=== PATIENT | female | born 1995 ===

== ENCOUNTER 2016-11-11 12:38 | Emergency (ER) | payer OTHER ==
[2016-11-11 13:03] VITALS: BP 118/72; PULSE 78; RESP 18; TEMP 98.1; O2SAT 100
--- NOTE | 2016-11-11 14:08 | ED PDOC ---
HPI: Female Pain Time Seen by Provider: 11/11/16 13:24 Chief Complaint (Nursing): Female Genitourinary Chief Complaint (Provider): Female Genitourinary History Per: Patient History/Exam Limitations: no limitations Onset/Duration Of Symptoms: Days Current Symptoms Are (Timing): Still Present Severity: Mild Quality Of Discomfort: Cramping Associated Symptoms: denies: Fever, Nausea, Vomiting Alleviating Factors: None Additional Complaint(s): Patient is a 21 year old female with a history of anemia secondary to vaginal bleeding resulting in transfusion, presents to ED for 1 month of vaginal bleeding with suprapubic cramping. Patient recently had her control changed 1-2 months ago with no relief, taking Norethradone. Patient notes several pads daily. Past Medical History Reviewed: Historical Data, Nursing Documentation, Vital Signs Vital Signs: Last Vital Signs Temp 98.1 F 11/11/16 13:03 Pulse 78 11/11/16 13:03 Resp 18 11/11/16 13:03 BP 118/72 11/11/16 13:03 Pulse Ox 100 11/11/16 13:03 - Medical History PMH: Kidney Stones Denies: HIV - Surgical History Surgical History: No Surg Hx - Family History Family History: States: Unknown Family Hx - Living Arrangements Living Arrangements: With Family - Immunization History Hx Tetanus Toxoid Vaccination: No Hx Influenza Vaccination: Yes Hx Pneumococcal Vaccination: No - Home Medications Home Medications: Ambulatory Orders Medication Instructions Recorded Ascorbic Acid [Vitamin C] 500 mg PO DAILY #30 tab 05/15/15 Ferrous Sulfate 325 mg PO DAILY #30 tab 05/15/15 Norgestimate-Ethinyl Estradiol 1 each PO DAILY #28 tablet 05/09/16 [Sprintec 28 Day Tablet] Ibuprofen [Motrin Tab] 800 mg PO Q6H PRN #20 tab 09/19/16 Ferrous Sulfate 325 mg PO DAILY #30 tablet 11/11/16 Ibuprofen [Motrin] 600 mg PO TID PRN #30 tab 11/11/16 - Allergies Allergies/Adverse Reactions: Allergies Allergy/AdvReac Type Severity Reaction Status Date / Time No Known Allergies Allergy Verified 11/11/16 13:01 Review of Systems ROS Statement: Except As Marked, All Systems Reviewed And Found Negative Constitutional: Negative for: Fever, Weakness Eyes: Negative for: Vision Change Cardiovascular: Negative for: Chest Pain, Palpitations Respiratory: Negative for: Shortness of Breath Gastrointestinal: Positive for: Abdominal Pain. Negative for: Nausea, Vomiting Genitourinary Female: Positive for: Vaginal Bleeding. Negative for: Dysuria Physical Exam - Reviewed Nursing Documentation Reviewed: Yes Vital Signs Reviewed: Yes - Physical Exam Appears: Positive for: Non-toxic, No Acute Distress Skin: Positive for: Normal Color, Warm. Negative for: Pallor Eye Exam: Positive for: Normal appearance Neck: Positive for: Normal, Painless ROM Cardiovascular/Chest: Positive for: Regular Rate, Rhythm. Negative for: Murmur , Tachycardia Respiratory: Positive for: Normal Breath Sounds. Negative for: Respiratory Distress Gastrointestinal/Abdominal: Positive for: Tenderness (mild suprapubic ). Negative for: Distended, Guarding, Rebound Pelvic Exam: Positive for: External Exam Normal, Bimanual Exam Normal, No Cerv. Motion Tender, Active Bleeding (scant, closed os) Back: Positive for: Normal Inspection Extremity: Positive for: Normal ROM, Capillary Refill (normal ) Neurologic/Psych: Positive for: Alert, Oriented, Gait (normal ). Negative for: Motor/Sensory Deficits - Laboratory Results Result Diagrams: 11/11/16 14:45 11/11/16 14:45 Urine POC: Negative Urine dip results: Positive for: Blood. Negative for: Leukocyte Esterase, Nitrate, Ketones, Glucose, Bilirubin, Protein - ECG O2 Sat by Pulse Oximetry: 100 (RA) Pulse Ox Interpretation: Normal Medical Decision Making Medical Decision Making: Time: 1345 Initial impression: Vaginal bleeding: dysmenorrhea vs DUB r/o Anemia and endometrial thickening Initial plan: -- Type and screen -- CMP -- Lipase -- Urine preg -- Urine dip -- CBC -- Toradol -- U/S Scribe Attestation: Documented by Ruth Wilkinson acting as a scribe for Mike Blackburn PA-C. MD Scribe Attestation: All medical record entries made by the Scribe were at my direction and personally dictated by me. I have reviewed the chart and agree that the record accurately reflects my personal performance of the history, physical exam, medical decision making, and the department course for this patient. I have also personally directed, reviewed, and agree with the discharge instructions and disposition. Labs with no acute finding. 9.8 Hgb US pending US-FINDINGS: UTERUS:Measures 10.8 x 3.1 x 5.3 cm. Anteverted. ENDOMETRIUM:Measures 4 mm in diameter. CERVIX:No cervical abnormality identified. RIGHT OVARY:Measures 3.4 x 1.7 x 2.5 cm. Blood flow is demonstrated. LEFT OVARY:Measures 2.5 x 1.7 x 3.5 cm. Blood flow is demonstrated. FREE FLUID:No significant free fluid noted. OTHER FINDINGS:None. IMPRESSION: Unremarkable pelvic ultrasound. discussed with patient results, follow up discharge information with video court interpreter deidra ChangBhargavi included labs 9.8 hgb, us and urine test. it included follow up and may need for change in hormone therapy all questions answered, stable for Disposition - Clinical Impression Clinical Impression: DUB (dysfunctional uterine bleeding), Anemia - Patient ED Disposition Is Patient to be Admitted: No Counseled Patient/Family Regarding: Studies Performed, Diagnosis, Need For Followup - Disposition Disposition: Routine/Home Disposition Time: 17:16 Condition: IMPROVED Additional Instructions: follow up with [facility] without fail for further evaluation and treatment your blood level is 9.8 take iron pills return for severe bleeding greater then 1 pad per hour, severe abdominal pain, dizziness, headaches, chest pain, trouble breathing, palpitations or any new concerns Prescriptions: Ferrous Sulfate 325 mg PO DAILY #30 tablet Ibuprofen [Motrin] 600 mg PO TID PRN #30 tab PRN Reason: Other Instructions: Dysfunctional Uterine Bleeding (ED), Anemia (ED) Print Language: FRENCH
[2016-11-11 14:59] LABS: BASO % 0.9 % (0.0-2.0); EOS # 0.1 K/uL (0.0-0.7); EOS % 1.3 % (0.0-4.0); HEMATOCRIT 32.8 % (34.0-47.0); LYMPH % 36.9 % (20.0-40.0); MEAN CELL VOLUME 66.3 fl (81.0-99.0); MEAN CORPUSCULAR HEMOGLOBIN 19.8 pg (27.0-31.0); MEAN CORPUSCULAR HGB CONC 29.9 g/dL (33.0-37.0); MEAN PLATELET VOLUME 9.7 fl (7.2-11.7); MONO # 0.6 K/uL (0.0-0.8); NEUT # 2.7 K/uL (1.8-7.0); NEUT % 49.9 % (50.0-75.0); NRBC % 0.1 % (0.0-0.0); RED CELL DISTRIBUTION WIDTH 18.9 % (11.5-14.5); WHITE BLOOD COUNT 5.4 K/uL (4.8-10.8)
[2016-11-11 15:18] LABS: ALB/GLOB RATIO 1.2 (1.0-2.1); ALKALINE PHOSPHATASE 76 U/L (38-126); ALT/SGPT 25 U/L (9-52); AST/SGOT 20 U/L (14-36); BILIRUBIN,TOTAL 0.1 mg/dl (0.2-1.3); BLOOD UREA NITROGEN 9 mg/dl (7-17); CALCIUM 9.2 mg/dL (8.4-10.2); CARBON DIOXIDE 23 mmol/L (22-30); CHLORIDE 107 mmol/L (98-107); GFR AFRICAN-AMERICAN > 60; GLUCOSE,RANDOM 81 mg/dL (65-105); LIPASE 92 U/L (23-300); POTASSIUM 4.2 MMOL/L (3.6-5.0); SODIUM 142 mmol/l (132-148); TOTAL PROTEIN 7.6 G/DL (6.3-8.2)
--- NOTE | 2016-11-11 16:57 | US ---
HISTORY: pain, DUB COMPARISON: Transvaginal pelvic ultrasound performed 05/14/15 TECHNIQUE: Transabdominal pelvic ultrasound FINDINGS: UTERUS: Measures 10.8 x 3.1 x 5.3 cm. Anteverted. ENDOMETRIUM: Measures 4 mm in diameter. CERVIX: No cervical abnormality identified. RIGHT OVARY: Measures 3.4 x 1.7 x 2.5 cm. Blood flow is demonstrated. LEFT OVARY: Measures 2.5 x 1.7 x 3.5 cm. Blood flow is demonstrated. FREE FLUID: No significant free fluid noted. OTHER FINDINGS: None. IMPRESSION: Unremarkable pelvic ultrasound.
== END 2016-11-11 18:31 | disposition home or self-care (01) ==
LOC: H.ER 12:38
DX: N93.8 Other specified abnormal uterine and vaginal bleeding (principal)

== ENCOUNTER 2017-10-22 12:40 | Emergency (ER) | payer SELFPAY ==
[2017-10-22 12:52] VITALS: BP 125/74; PULSE 78; RESP 19; TEMP 98.4; O2SAT 100
--- NOTE | 2017-10-22 13:59 | ED PDOC ---
HPI: Female Pain Time Seen by Provider: 10/22/17 13:18 Chief Complaint (Nursing): Female Genitourinary Chief Complaint (Provider): VAGINAL DC History Per: Patient History/Exam Limitations: no limitations Onset/Duration Of Symptoms: Days Additional Complaint(s): Pt. with vaginal dc, white color for 3 days. Pt. with no pelvic, pain, dyspnea , chest pain, weakness, headaches. No dysuria. Has had similar dc momths ago and given some meds that helped it. No fever. Past Medical History Reviewed: Nursing Documentation, Vital Signs Vital Signs: Last Vital Signs Temp 98.4 F 10/22/17 12:49 Pulse 78 10/22/17 12:49 Resp 19 10/22/17 12:49 BP 125/74 10/22/17 12:49 Pulse Ox 100 10/22/17 12:49 - Medical History PMH: Kidney Stones Denies: HIV Other PMH: vaginal dc infection - Surgical History Surgical History: No Surg Hx - Family History Family History: States: Unknown Family Hx - Living Arrangements Living Arrangements: With Family - Social History Current smoker - smoking cessation education provided: No Alcohol: None Drugs: Denies - Immunization History Hx Tetanus Toxoid Vaccination: No Hx Influenza Vaccination: Yes Hx Pneumococcal Vaccination: No - Home Medications Home Medications: Ambulatory Orders Medication Instructions Recorded Ascorbic Acid [Vitamin C] 500 mg PO DAILY #30 tab 05/15/15 Ferrous Sulfate 325 mg PO DAILY #30 tab 05/15/15 Norgestimate-Ethinyl Estradiol 1 each PO DAILY #28 tablet 05/09/16 [Sprintec 28 Day Tablet] Ibuprofen [Motrin Tab] 800 mg PO Q6H PRN #20 tab 09/19/16 Ferrous Sulfate 325 mg PO DAILY #30 tablet 11/11/16 Ibuprofen [Motrin] 600 mg PO TID PRN #30 tab 11/11/16 Ciprofloxacin HCl [Cipro] 250 mg PO BID #6 tab 10/22/17 Doxycycline Hyclate [Doryx] 100 mg PO BID 14 Days cap 10/22/17 Ibuprofen [Motrin] 600 mg PO TID 7 Days tab 10/22/17 Nystatin [Mycostatin Cream] 1 appl TP BID 5 Days tube 10/22/17 - Allergies Allergies/Adverse Reactions: Allergies Allergy/AdvReac Type Severity Reaction Status Date / Time No Known Allergies Allergy Verified 11/11/16 13:01 Review of Systems Constitutional: Negative for: Chills, Weakness Cardiovascular: Negative for: Chest Pain, Edema Respiratory: Negative for: Shortness of Breath Gastrointestinal: Negative for: Nausea, Vomiting, Abdominal Pain, Diarrhea Genitourinary Female: Positive for: Vaginal Discharge Musculoskeletal: Negative for: Neck Pain, Shoulder Pain, Arm Pain Skin: Negative for: Rash Neurological: Negative for: Weakness Physical Exam - Reviewed Nursing Documentation Reviewed: Yes Vital Signs Reviewed: Yes - Physical Exam Appears: Positive for: Non-toxic, No Acute Distress Cardiovascular/Chest: Positive for: Regular Rate, Rhythm Respiratory: Positive for: Normal Breath Sounds Gastrointestinal/Abdominal: Positive for: Normal Exam, Bowel Sounds, Soft. Negative for: Tenderness Pelvic Exam: Positive for: External Exam Normal, No Cerv. Motion Tender, Other ( cervix with white-yellow dc; no odor; no erythema of cervix). Negative for: Speculum Exam Normal, Active Bleeding Back: Positive for: Normal Inspection. Negative for: L CVA Tenderness, R CVA Tenderness Extremity: Positive for: Normal ROM. Negative for: Tenderness, Pedal Edema Neurologic/Psych: Positive for: Alert - Laboratory Results Urine dip results: Positive for: Leukocyte Esterase - ECG O2 Sat by Pulse Oximetry: 100 Pulse Ox Interpretation: Normal - Progress ED Course And Treament: 1413: Stable. AAOx3. Pt. with vaginal dc. Will tx for uti, std possible and fungal. Pt. states vaginal area itching. Disposition - Clinical Impression Clinical Impression: Urinary tract infection, Vaginal discharge - Patient ED Disposition Is Patient to be Admitted: No Counseled Patient/Family Regarding: Diagnosis, Need For Followup, Rx Given - Disposition [facility] - [facility]17 Disposition: Routine/Home Disposition Time: 14:14 Condition: STABLE Additional Instructions: Return if not better in 3 days. Prescriptions: Ciprofloxacin HCl [Cipro] 250 mg PO BID #6 tab Doxycycline Hyclate [Doryx] 100 mg PO BID 14 Days cap Ibuprofen [Motrin] 600 mg PO TID 7 Days tab Nystatin [Mycostatin Cream] 1 appl TP BID 5 Days tube Instructions: Urinary Tract Infection, Adult (DC), Vaginal Discharge in Adults Print Language: KOSOVAN
[2017-10-22] MEDS ORDERED: cefTRIAXone (Rocephin) 250 mg Inj IM ONE (14:06)
[2017-10-22] MEDS ORDERED: cefTRIAXone (Rocephin) 250 mg Inj ONE (14:46)
== END 2017-10-22 14:56 | disposition home or self-care (01) ==
LOC: SUPCPDRO 12:40 → H.ER 12:40
DX: N39.0 Urinary tract infection, site not specified (principal); Z87.442 Personal history of urinary calculi
CPT/HCPCS: 81025; 87491; 87591; 96372; 99283; J0696

== ENCOUNTER 2017-11-15 05:03 | Emergency (ER) | payer SELFPAY ==
[2017-11-15 05:21] VITALS: BP 124/76; PULSE 84; RESP 16; TEMP 98; O2SAT 100
--- NOTE | 2017-11-15 05:33 | ED PDOC ---
HPI: General Adult Time Seen by Provider: 11/15/17 05:10 Chief Complaint (Nursing): ENT Problem Chief Complaint (Provider): right ear pain History Per: Patient History/Exam Limitations: no limitations Onset/Duration Of Symptoms: Mins Current Symptoms Are (Timing): Still Present Additional Complaint(s): 22 y/o female presents for evaluation of right ear pain, onset prior to arrival. Patient states she was sleeping and felt something go in to her ear and now feels it moving around. Denies hearing changes, drainage from ear. Past Medical History Reviewed: Historical Data, Nursing Documentation, Vital Signs Vital Signs: Last Vital Signs Temp 98.0 F 11/15/17 05:08 Pulse 84 11/15/17 05:08 Resp 16 11/15/17 05:08 BP 124/76 11/15/17 05:08 Pulse Ox 100 11/15/17 05:08 - Medical History PMH: Kidney Stones Denies: HIV - Surgical History Surgical History: No Surg Hx - Family History Family History: States: Unknown Family Hx - Living Arrangements Living Arrangements: With Family - Immunization History Hx Tetanus Toxoid Vaccination: No Hx Influenza Vaccination: Yes Hx Pneumococcal Vaccination: No - Home Medications Home Medications: Ambulatory Orders Medication Instructions Recorded Ascorbic Acid [Vitamin C] 500 mg PO DAILY #30 tab 05/15/15 Ferrous Sulfate 325 mg PO DAILY #30 tab 05/15/15 Norgestimate-Ethinyl Estradiol 1 each PO DAILY #28 tablet 05/09/16 [Sprintec 28 Day Tablet] Ibuprofen [Motrin Tab] 800 mg PO Q6H PRN #20 tab 09/19/16 Ferrous Sulfate 325 mg PO DAILY #30 tablet 11/11/16 Ibuprofen [Motrin] 600 mg PO TID PRN #30 tab 11/11/16 Ciprofloxacin HCl [Cipro] 250 mg PO BID #6 tab 10/22/17 Doxycycline Hyclate [Doryx] 100 mg PO BID 14 Days cap 10/22/17 Ibuprofen [Motrin] 600 mg PO TID 7 Days tab 10/22/17 Nystatin [Mycostatin Cream] 1 appl TP BID 5 Days tube 10/22/17 - Allergies Allergies/Adverse Reactions: Allergies Allergy/AdvReac Type Severity Reaction Status Date / Time No Known Allergies Allergy Verified 11/11/16 13:01 Review of Systems ROS Statement: Except As Marked, All Systems Reviewed And Found Negative ENT: Positive for: Ear Pain (right) Physical Exam - Reviewed Nursing Documentation Reviewed: Yes Vital Signs Reviewed: Yes - Physical Exam Appears: Positive for: Well, Non-toxic, No Acute Distress ENT: Positive for: TM Is/Are (black insect moving around in right EAC. TM not visualized. Left TM, EAC clear). Negative for: Pharyngeal Erythema, Tonsillar Exudate, Tonsillar Swelling - ECG O2 Sat by Pulse Oximetry: 100 - Progress ED Course And Treament: Viscous lidocaine placed in to right ear. Right ear irrigated with normal saline with + removal of insect. RIght TM clear. Right EAC clear. Patient educated on findings, discharged with instructions to follow up PMD 2-3 days. Return precautions given Disposition - Clinical Impression Clinical Impression: Ear foreign body - Patient ED Disposition Is Patient to be Admitted: No Counseled Patient/Family Regarding: Diagnosis, Need For Followup - Disposition Referrals: [facility] [Outside] Disposition: Routine/Home Disposition Time: 05:34 Condition: IMPROVED Instructions: Removing Objects Stuck in the Ear Print Language: ROMANIAN
== END 2017-11-15 05:46 | disposition home or self-care (01) ==
LOC: H.ER 05:03
DX: T16.1XXA Foreign body in right ear, initial encounter (principal)

== ENCOUNTER 2018-01-18 18:21 | Emergency (ER) | payer SELFPAY ==
[2018-01-18 19:17] VITALS: BP 128/74; PULSE 88; RESP 18; TEMP 99; O2SAT 98
--- NOTE | 2018-01-18 19:53 | ED PDOC ---
HPI: Female Pain Time Seen by Provider: 01/18/18 19:23 Chief Complaint (Nursing): Female Genitourinary Chief Complaint (Provider): Suprapubic pain, dysuria x 3 days History Per: Patient History/Exam Limitations: no limitations Onset/Duration Of Symptoms: Days Current Symptoms Are (Timing): Still Present Associated Symptoms: Urinary Symptoms. denies: Fever, Chills, Nausea, Vomiting , Loss Of Appetite, Back Pain, Constipation Alleviating Factors: None Additional Complaint(s): 3 days of burning on urination and suprapubic pain. No fever/chills. No back pain. No N/V/D. Past Medical History Vital Signs: Last Vital Signs Temp 99 F 01/18/18 19:15 Pulse 88 01/18/18 19:15 Resp 18 01/18/18 19:15 BP 128/74 01/18/18 19:15 Pulse Ox 98 01/18/18 19:15 - Medical History PMH: Kidney Stones Denies: HIV - Family History Family History: States: Unknown Family Hx - Immunization History Hx Tetanus Toxoid Vaccination: No Hx Influenza Vaccination: Yes Hx Pneumococcal Vaccination: No - Home Medications Home Medications: Ambulatory Orders Medication Instructions Recorded Ascorbic Acid [Vitamin C] 500 mg PO DAILY #30 tab 05/15/15 Ferrous Sulfate 325 mg PO DAILY #30 tab 05/15/15 Norgestimate-Ethinyl Estradiol 1 each PO DAILY #28 tablet 05/09/16 [Sprintec 28 Day Tablet] Ibuprofen [Motrin Tab] 800 mg PO Q6H PRN #20 tab 09/19/16 Ferrous Sulfate 325 mg PO DAILY #30 tablet 11/11/16 Ibuprofen [Motrin] 600 mg PO TID PRN #30 tab 11/11/16 Ciprofloxacin HCl [Cipro] 250 mg PO BID #6 tab 10/22/17 Doxycycline Hyclate [Doryx] 100 mg PO BID 14 Days cap 10/22/17 Ibuprofen [Motrin] 600 mg PO TID 7 Days tab 10/22/17 Nystatin [Mycostatin Cream] 1 appl TP BID 5 Days tube 10/22/17 - Allergies Allergies/Adverse Reactions: Allergies Allergy/AdvReac Type Severity Reaction Status Date / Time No Known Allergies Allergy Verified 01/18/18 19:15 Physical Exam - Reviewed Nursing Documentation Reviewed: Yes Vital Signs Reviewed: Yes - Physical Exam Appears: Positive for: Well, Non-toxic, No Acute Distress Head Exam: Positive for: ATRAUMATIC, NORMAL INSPECTION, NORMOCEPHALIC Skin: Positive for: Normal Color, Warm, DRY Eye Exam: Positive for: Normal appearance ENT: Positive for: Normal ENT Inspection Neck: Positive for: Normal, Painless ROM Cardiovascular/Chest: Positive for: Regular Rate, Rhythm Respiratory: Positive for: Normal Breath Sounds. Negative for: Accessory Muscle Use, Respiratory Distress Gastrointestinal/Abdominal: Positive for: Normal Exam Back: Positive for: Normal Inspection Extremity: Positive for: Normal ROM Neurologic/Psych: Positive for: Alert, Oriented - ECG O2 Sat by Pulse Oximetry: 98 Pulse Ox Interpretation: Normal Medical Decision Making Medical Decision Making: Leuks and blood on US. Disposition - Clinical Impression Clinical Impression: Urinary tract infection - Patient ED Disposition Is Patient to be Admitted: No Counseled Patient/Family Regarding: Diagnosis, Need For Followup, Rx Given - Disposition Disposition: Routine/Home Disposition Time: 19:55 Condition: STABLE Instructions: Urinary Tract Infections in Adults Print Language: TRINIDADIAN
== END 2018-01-18 20:27 | disposition home or self-care (01) ==
LOC: H.ER 18:21
DX: N39.0 Urinary tract infection, site not specified (principal)

== ENCOUNTER 2018-10-20 14:18 | Emergency (ER) | payer OTHER ==
[2018-10-20 14:19] VITALS: BMI 32.4
[2018-10-20 14:22] VITALS: BP 134/82; PULSE 99; RESP 18; TEMP 98.9; O2SAT 100
--- NOTE | 2018-10-20 15:05 | ED PDOC ---
HPI: Female Pain Time Seen by Provider: 10/20/18 14:37 Chief Complaint (Nursing): Female Genitourinary Chief Complaint (Provider): Female Genitourinary History Per: Patient History/Exam Limitations: no limitations Onset/Duration Of Symptoms: Days Current Symptoms Are (Timing): Still Present Additional Complaint(s): 23 y/o female with a PMHx of irregular menstruation, PCOS, migraines and chronic lower abdominal pain presents to the ED for evaluation of vaginal bleeding for the past three days associated with a headache for the past couple of weeks. Patient reports of having painful and heavy menstrual periods for which she is being evaluated and treated by her Social Service Assistant at [facility], Dr. Moses. Patient notes she was given control medications for treatment and had a D&C last Monday. Patient states bleeding is no longer heavy. Patient notes bleeding is mild and persistent. Patient is now concerned if she is anemic. Patient reports current headache is similar to those of her migraines. Patient notes of taking Tylenol and Ibuprofen with no relief of symptoms. Of note, patient reports of have an US recently that confirmed Ovarian Cysts. Patient states she has a follow up appointment with her [facility] next Monday. Patient notes she is currently not taking control now or bleeding at this time. Denies fever, nausea, vomiting, diarrhea and urinary symptoms. PMD: Anisa Brewer Abnormal Vaginal Bleeding: Yes Past Medical History Reviewed: Historical Data, Nursing Documentation, Vital Signs Vital Signs: Last Vital Signs Temp 98.9 F 10/20/18 14:22 Pulse 99 H 10/20/18 14:22 Resp 18 10/20/18 14:22 BP 134/82 10/20/18 14:22 Pulse Ox 100 10/20/18 14:22 - Medical History PMH: Anemia, Kidney Stones Denies: HIV - Surgical History Surgical History: No Surg Hx - Family History Family History: States: Unknown Family Hx - Immunization History Hx Tetanus Toxoid Vaccination: No Hx Influenza Vaccination: Yes Hx Pneumococcal Vaccination: No - Home Medications Home Medications: Ambulatory Orders Medication Instructions Recorded Acetaminophen/Butalbital/Caf 1 tab PO TID PRN #15 tab 10/20/18 [Fioricet] - Allergies Allergies/Adverse Reactions: Allergies Allergy/AdvReac Type Severity Reaction Status Date / Time No Known Allergies Allergy Verified 10/15/18 10:17 Review of Systems ROS Statement: Except As Marked, All Systems Reviewed And Found Negative Constitutional: Negative for: Fever Gastrointestinal: Positive for: Abdominal Pain. Negative for: Nausea, Vomiting, Diarrhea Genitourinary Female: Positive for: Vaginal Bleeding. Negative for: Dysuria, Frequency, Hematuria Neurological: Positive for: Headache Physical Exam - Reviewed Nursing Documentation Reviewed: Yes Vital Signs Reviewed: Yes - Physical Exam Appears: Positive for: No Acute Distress (comfortable). Negative for: Uncomfortable Head Exam: Positive for: ATRAUMATIC, NORMOCEPHALIC Skin: Positive for: Normal Color, Warm, Dry Eye Exam: Positive for: Normal appearance, EOMI, PERRL ENT: Positive for: Normal ENT Inspection Neck: Positive for: Normal, Painless ROM, Supple Cardiovascular/Chest: Positive for: Regular Rate, Rhythm. Negative for: Murmur Respiratory: Positive for: Normal Breath Sounds. Negative for: Respiratory Distress Gastrointestinal/Abdominal: Positive for: Normal Exam, Soft. Negative for: Tenderness Back: Positive for: Normal Inspection. Negative for: L CVA Tenderness, R CVA Tenderness, Vertebral Tenderness Extremity: Positive for: Normal ROM. Negative for: Deformity Neurologic/Psych: Positive for: Alert, Oriented. Negative for: Motor/Sensory Deficits - Laboratory Results Result Diagrams: 10/20/18 15:28 10/20/18 15:28 - ECG O2 Sat by Pulse Oximetry: 100 (RA) Pulse Ox Interpretation: Normal - Progress Re-evaluation Time: 17:30 Condition: Re-examined, Improved Medical Decision Making Medical Decision Making: Time: 1448 Impression: Headache and Vaginal Bleeding Differentials: Most likely migraine headache, anemia, iron deficient anemia. Symptoms appears to be a recurrent dysfunctional uterine bleeding that is chronic. Plan: -- BMP -- ED Urine -- ED Urine Dipstick -- CBC with Differentials -- Reglan 10 mg IVP -- Toradol 30 mg IVP -- IV Insertion Scribe Attestation: Documented by Tommie Tom, acting as a scribe for Lexy Burgos MD. Provider Scribe Attestation: All medical record entries made by the Scribe were at my direction and personally dictated by me. I have reviewed the chart and agree that the record accurately reflects my personal performance of the history, physical exam, medical decision making, and the department course for this patient. I have also personally directed, reviewed, and agree with the discharge instructions and disposition. Disposition - Clinical Impression Clinical Impression: Vaginal bleeding, Headache - Patient ED Disposition Is Patient to be Admitted: No Doctor Will See Patient In The: Office Counseled Patient/Family Regarding: Studies Performed, Diagnosis, Need For Fol lowup - Disposition Referrals: [facility] [Outside] Ritu Moses MD [Medical Doctor] - Disposition: Routine/Home Disposition Time: 17:30 Condition: GOOD Additional Instructions: TED CUEVA, thank you for letting us take care of you today. Your provider was Lexy Burgos MD and you were treated for HEAD PAIN. The [facility] medical care you received today was directed at your acute symptoms. If you were prescribed any medication, please fill it and take as directed. It may take several days for your symptoms to resolve. Return to the Emergency Department if your symptoms worsen, do not improve, or if you have any other problems. Please contact your doctor or call one of the physicians/clinics you have been referred to that are listed on the Patient Visit Information form that is included in your discharge packet. Bring any paperwork you were given at discharge with you along with any medications you are taking to your follow up visit. Our treatment cannot replace ongoing medical care by a primary care provider outside of the emergency department. Thank you for allowing the [facility] team to be part of your care today. If you had an X-Ray or CT scan: A Radiologist will review the ED reading if any change in treatment is needed we will contact you. If you had a blood, urine, or wound culture: It will take several days for the results, if any change in treatment is needed we will contact you. If you had an STI test: It will take 48 hours for the results. Please call after 1 week if you have not heard back. Prescriptions: Acetaminophen/Butalbital/Caf [Fioricet] 1 tab PO TID PRN #15 tab PRN Reason: Headache Instructions: Migraine Headache (DC), Heavy Periods (DC) Print Language: CITIZEN [place]
[2018-10-20 15:56] LABS: BASO % 0.7 % (0.0-2.0); EOS # 0.1 K/uL (0.0-0.7); EOS % 2.2 % (0.0-4.0); HEMOGLOBIN 11.8 g/dL (12.0-16.0); LYMPH # 1.6 K/uL (1.0-4.3); MEAN CORPUSCULAR HEMOGLOBIN 27.5 pg (27.0-31.0); MEAN CORPUSCULAR HGB CONC 32.7 g/dL (33.0-37.0); MEAN PLATELET VOLUME 10.3 fl (7.2-11.7); MONO # 0.5 K/uL (0.0-0.8); MONO % 10.3 % (0.0-10.0); NEUT # 2.8 K/uL (1.8-7.0); NEUT % 55.8 % (50.0-75.0); RBC 4.31 Mil/uL (3.80-5.20); RED CELL DISTRIBUTION WIDTH 14.5 % (11.5-14.5); WHITE BLOOD COUNT 5.1 K/uL (4.8-10.8)
[2018-10-20 16:09] LABS: BLOOD UREA NITROGEN 9 mg/dl (7-17); CALCIUM 9.8 mg/dL (8.4-10.2); GFR NON-AFRICAN AMERICAN > 60
== END 2018-10-20 18:49 | disposition home or self-care (01) ==
LOC: H.ER 14:18
DX: N92.0 Excessive and frequent menstruation with regular cycle (principal); D64.9 Anemia, unspecified; N83.202 Unspecified ovarian cyst, left side; E28.2 Polycystic ovarian syndrome
CPT/HCPCS: 80048; 81025; 85025; 96374; 96375; 99283; J1885; J2765